=== PATIENT | female | born 1940 | race Caucasian/White ===

== ENCOUNTER 2018-01-19 13:20 | Inpatient (IN) | payer OTHER ==
[~2018-01-19] VITALS: Ht 165.1 cm; Wt 77.1 kg
[~2018-01-19 13:20] MED LIST: ATENOLOL25 MG PO; PLAVIX75 MG PO; TRICOR145 MG PO
[2018-01-21] MEDS ORDERED: ULTRACET PO (09:00)
[2018-01-21] MEDS ORDERED: COLACE100 MG PO (09:00)
== END 2018-01-21 10:22 | disposition home or self-care (01) | DRG 741 ==
LOC: O/R 01-20 05:47 → SURH 01-20 09:25 → OB/GYN 01-20 14:20
PROVIDERS: Obstetrics & Gynecology Gynecologic Oncology
PROC: 0UT20ZZ Resection of Bilateral Ovaries, Open Approach (ICD-10-PCS; 2018-01-20)
PROC: 0UT70ZZ Resection of Bilateral Fallopian Tubes, Open Approach (ICD-10-PCS; 2018-01-20)
PROC: 07BC0ZX Excision of Pelvis Lymphatic, Open Approach, Diagnostic (ICD-10-PCS; 2018-01-20)
PROC: 0UT90ZZ Resection of Uterus, Open Approach (ICD-10-PCS; principal; 2018-01-20 12:45)
DX: C54.1 Malignant neoplasm of endometrium (principal)